=== PATIENT | female | born 1985 | race Caucasian/White ===

== ENCOUNTER 2019-11-29 03:01 | Emergency (ER) | payer SELFPAY ==
[2019-11-29 03:01] VITALS: BP 120/74; PULSE 89; RESP 20; TEMP 36.6; O2SAT 97
--- NOTE | 2019-11-29 03:20 | ED.SKABFB ---
HPI - Skin/Abscess/Foreign Bdy General Chief complaint: Skin/Abscess/Foreign Body Stated complaint: PAIN Source: patient Mode of arrival: ambulatory Limitations: no limitations History of Present Illness HPI narrative: This is a 34-year-old female that presents with some abscess located in the anterior surface of her right knee, started approximately 4 days ago nonfluctuant with currently no drainage it is warm and tender to touch. Patient states that she has had history of MRSA, currently no fever or chills no shortness of breath. complaint: abscess/boil Onset (ago): day(s) Location: [facility] Severity: moderate Severity scale (1-10): 5 Quality: burning and aching Pain Consistency: constant Relieving factors: cold therapy Exacerbating factors: none Context: none Associated symptoms: denies other symptoms Treatments prior to arrival: none Related Data Allergies Allergy/AdvReac Type Severity Reaction Status Date / Time No Known Allergies Allergy Verified 11/29/19 03:16 Review of Systems Review of Systems: All systems reviewed & are unremarkable except as noted in HPI and below PMFSH Past Medical History Medical History Patient denies medical problems Exam Const: General: no acute distress and alert Orientation/consciousness: patient oriented x3 HENMT: Head: normal to inspection Eyes: Conjunctivae: conjunctivae normal Pupils: Equal, round and reactive pupils present EOM: EOMs intact bilaterally Neck: Neck: normal visual inspection, no lymphadenopathy and no meningeal signs Chest: Chest palpation & inspection: normal inspection of the chest Resp: Effort & Inspection: normal respiratory effort Auscultation: clear to auscultation bilaterally Cardio: Rate: regular rate Rhythm: regular rhythm GI: Auscultation: normal bowel sounds : General: Yes no CVA tenderness Skin: Wounds: wounds noted ( Red nonfluctuant area right anterior knee) Neuro: General: patient oriented x3 Speech: normal speech Extrem: General: normal to inspection and no pedal edema Psych: Mental Status: mental status grossly normal Course Course Emergency Course: started patient on a dose of Augmentin prior to discharge and told patient she can use a warm compress along with taking her antibiotics that were sent to her pharmacy. Critical Care Time Critical Care Time Critical Care Time: No Discharge Plan Discharge Clinical Impression: Abscess of skin or subcutaneous tissue Qualifiers: Site of cutaneous abscess: extremity Site of cutaneous abscess of extremity: lower extremity Laterality: right Qualified Code(s): L02.415 - Cutaneous abscess of right lower limb Cellulitis Qualifiers: Site of cellulitis: extremity Site of cellulitis of extremity: lower extremity Laterality: right Qualified Code(s): L03.115 - Cellulitis of right lower limb Patient Disposition: Home, Self-Care Condition: Stable Instructions: Antibiotic Form, Cellulitis (ED), Abscess (ED) Additional Instructions: Take medicine as prescribed and follow-up with primary care physician If symptoms persist or worsen. Warm compress to affected area, can use Motrin as needed for pain and inflammation. Prescriptions: New amoxicillin-pot clavulanate [Augmentin] 875-125 mg tablet 1 tablet PO Q12H Qty: 20 RF: 0 Follow-up/Referrals: Carrie,JACINTO Russell [Primary Care Provider] - Time of Disposition: 03:26
[2019-11-29] MEDS: AMOXICILLIN/CLAVULANATE K 875-125 MG TAB 1 TABLET PO (03:23)
== END 2019-11-29 03:29 | disposition home or self-care (01) ==
PROVIDERS: Emergency Provider Emergency Medicine; PCP Physician Assistant
DX: L02.415 Cutaneous abscess of right lower limb (principal)
CPT/HCPCS: 99283; A9270

== ENCOUNTER 2020-04-13 12:09 | Emergency (ER) | payer OTHER, SELFPAY ==
--- NOTE | ~2020-04-13 | XR_ITS ---
EXAMINATION: XR chest 1V portable DATE: 04/13/2020 13:26 INDICATION: Cough, shortness of breath, headache and fever TECHNIQUE: frontal view of the chest was obtained. COMPARISON: None FINDINGS: The lungs are clear with no focal airspace opacities, pulmonary edema, pleural effusion or pneumothor ax. The cardiomediastinal silhouette is normal. Visualized bones and soft tissues are unremarkable. IMPRESSION: 1. Normal chest radiograph. Reviewed, dictated and finalized at location B. IMPRESSION: 1. Normal chest radiograph.
--- NOTE | 2020-04-13 12:22 | ED.GENADULT ---
HPI - General Adult General Chief complaint: Nausea/Vomiting/Diarrhea Stated complaint: diarrhea headache fever for last 10 days Source: patient Mode of arrival: ambulatory Limitations: no limitations History of Present Illness HPI narrative: Fior is a 34F with a PMH of tobacco abuse, MJ use that presented to the ER with multiple symptoms. 10 days ago she started having some abdominal pain and non-bloody diarrhea. She has had up to 5 episodes per day. She also reports several days of headache, body aches, chills, cold sweats, and fever 99-102. In the last few days she has started to have a dry cough. No known COVID contacts but she does work as a [employer]. Related Data Home Medications Medication Instructions Recorded Confirmed No Home Medications 04/13/20 04/13/20 Allergies Allergy/AdvReac Type Severity Reaction Status Date / Time levofloxacin [From Levaquin] Allergy Unknown Verified 04/13/20 12:45 Review of Systems Constitutional: Constitutional: Reports chills, Reports fatigue and Reports fever(s) Eyes: Eyes: Reports no additional eye complaints ENT: Reports nasal congestion and Reports sore throat Cardiovascular: Cardiovascular: Reports no additional cardiovascular complaints Respiratory: Respiratory: Reports as per HPI Gastrointestinal: Gastrointestinal: Reports as per HPI Genitourinary: Genitourinary: Reports no additional female genitourinary complaints Musculoskeletal: Musculoskeletal: Reports myalgias and Reports muscle cramps Integumentary/Breasts: Skin/Breast: Reports system reviewed and no additional complaints, except as docu Neurologic: Reports as per HPI and Reports headache(s) Psychiatric: Psychiatric: Reports no additional psychiatric complaints Endocrine: Endocrine: Reports no additional endocrine complaints Hematologic/Lymphatic: Hematologic/Lymphatic: Reports no additional hematologic/lymphatic complaints Allergic/Immunologic: Allergic/Immunologic: Reports no additional allergic/immunologic complaints [facility] Past Medical History Medical History (Updated 04/13/20 @ 15:00 by Rg Price DO) Patient denies medical problems Social History Social History Gender identity (if verbalized by the patient): Female Exam Const: General: no acute distress and alert; No confusion Orientation/consciousness: patient oriented x3 Limitations: No altered mental status HENMT: Head: normal to inspection Other: slightly dry mucous membranes. Erythematous nasal turbinates. Eyes: Conjunctivae: conjunctivae normal Pupils: Equal, round and reactive pupils present Neck: Neck: normal visual inspection Chest: Chest palpation & inspection: normal inspection of the chest Resp: Effort & Inspection: normal respiratory effort, not labored and no use of accessory muscles Auscultation: clear to auscultation bilaterally and no wheezes Other: dry cough present on exam Cardio: Rate: regular rate Rhythm: regular rhythm GI: Inspection: non-distended GI Palp: Yes Soft to palpation and No Tenderness to palpation present (GI) : General: Yes no CVA tenderness Back/Spine/Pelvis: Back: no CVA tenderness Skin: General skin exam: normal color Rashes: no rashes Neuro: General: patient oriented x3 and moves all extremities Extrem: General: normal to inspection Psych: Mental Status: mental status grossly normal Attitude: cooperative Course Course Emergency Course: Fior was evaluated. Ordered UA, C. diff, CXR, COVID and labs as below. She was given 1,000ml NS and ibuprofen for body aches. CBC showed showed microcytic anemia, chemistries were unremarkable, and UA was unremarkable. She was not able to give a stool sample for her C. Diff (has not ate anything lately and she only gets diarrhea with eating). COVID is pending. She was discharged to isolate for a couple days for suspected COVID and to return a stool sample for the lab. She w
[2020-04-13 12:31] VITALS: BP 139/81; PULSE 98; RESP 20; TEMP 37; O2SAT 100
[2020-04-13] MEDS: IBUPROFEN 400 MG TABLET PO (13:18)
[2020-04-13] MEDS: SODIUM CHLORIDE 0.9% IV 1,000 ML 999 ML IV CONT (13:19)
[2020-04-13 13:41] LABS: Basophils Absolute Auto 0.04 K/mm3 (0.00-0.10); Basophils Percent Auto 0.6 % (0.0-1.0); Eosinophils Absolute Auto 0.27 K/mm3 (0.02-0.50); Eosinophils Percent Auto 4.1 % (1.0-6.0); Hematocrit 33.1 % (35.0-49.0); Hemoglobin 10.8 g/dL (12.0-15.0); Immature Granulocyte Absolute 0.01 K/mm3 (0.00-0.00); Immature Granulocyte Percent A 0.2 % (0.0-0.0); Lymphocytes Absolute Auto 1.82 K/mm3 (1.10-4.50); Lymphocytes Percent Auto 27.4 % (18.0-42.0); Mean Corpuscular HGB Conc 32.6 g/dL (32.0-36.0); Mean Corpuscular Hemoglobin 27.8 pg (27.0-31.0); Mean Corpuscular Volume 85.1 fL (78.0-102.0); Mean Platelet Volume 11.5 fl (9.2-11.8); Monocytes Absolute Auto 0.48 K/mm3 (0.10-0.90); Monocytes Percent Auto 7.2 % (2.0-11.0); Neutrophils Percent Auto 60.5 % (50.0-70.0); Platelet Count Result 197 K/mm3 (150-420); Red Blood Count 3.89 M/mm3 (4.20-5.40); Red Cell Distribution Width 13.6 % (11.6-14.4); White Blood Count 6.7 K/mm3 (4.8-10.8)
[2020-04-13 13:44] LABS: Add Urine Microscopic? NO; Appearance Urine Clear (Clear); Bilirubin Urine Negative (Negative); Blood Urine Negative (Negative); Color Urine Yellow (Yellow); Glucose Urine UA Negative (Negative); Ketones Urine Negative (Negative); Leukocyte Esterase Ur Negative (Negative); Nitrate Urine Negative (Negative); Protein Urine Negative (Negative); Urobilinogen Urine 0.2 mg/dL (0.2-1.0); pH Urine 7.5 (5.0-8.0)
[2020-04-13 13:56] LABS: Alanine Aminotransferase 19 U/L (14-59); Albumin Level 3.6 g/dL (3.4-5.0); Alkaline Phosphatase 50 U/L (46-116); Anion Gap 10 mmol/L (8-16); Aspartate Amino Transferase 14 U/L (15-37); Bilirubin,Total 0.4 mg/dL (0.00-1.00); Blood Urea Nitrogen 12 mg/dL (7-18); Calcium 8.4 mg/dL (8.5-10.1); Carbon Dioxide 25 mmol/L (21-32); Chloride 108 mmol/L (98-108); Estimated CRCL calculation 68 ml/min; Estimated Glomerular Filt Rate > 60; Glucose 84 mg/dL (70-99); Lipase 85 U/L (73-393); Osmolality Calculated 294 mOsm/kg (285-295); Potassium 3.8 mmol/L (3.5-5.1); Sodium 143 mmol/L (136-145); Total Protein 6.5 g/dL (6.4-8.2)
[2020-04-13 14:03] LABS: Influenza Control Valid (Valid)
[2020-04-13 15:18] VITALS: BP 117/69; PULSE 80; RESP 20; O2SAT 99
[2020-04-14 13:52] LABS: SARS-CoV-2 RNA PCR Negative
== END 2020-04-13 15:22 | disposition home or self-care (01) ==
PROVIDERS: Emergency Provider Family Medicine
DX: B34.9 Viral infection, unspecified (principal); D64.9 Anemia, unspecified; Z20.828 Contact with and (suspected) exposure to other viral communicable diseases
CPT/HCPCS: 36415; 71045; 80053; 81003; 83690; 85025; 87635; 87804; 96360; 99283; A9270; C9803; J7030; U0003

== ENCOUNTER 2020-06-14 17:04 | Emergency (ER) | payer OTHER, SELFPAY ==
--- NOTE | ~2020-06-14 | XR_ITS ---
EXAMINATION: XR shoulder RT min 2V EXAM DATE: 06/14/2020 18:34 INDICATION: Right anterior shoulder and clavicle pain s/p lifting injury. TECHNIQUE: The following right shoulder projections obtained: frontal projection with internal rotati on, frontal projection with external rotation, Grashey, and scapular Y view (4+ views). There is no prior study for comparison. FINDINGS: No evidence of right shoulder rotator cuff calcific tendinosis. Unremarkable right kyle ohumeral and acromioclavicular joints. There are no acute fractures or dislocations identified. Ther e is no subcutaneous gas. The soft tissue is unremarkable. There are no radiopaque foreign bodies. IMPRESSION: 1. Unremarkable right shoulder exam. Reviewed, dictated and finalized at location A. RIGGER
[2020-06-14 17:18] VITALS: BP 124/86; PULSE 82; RESP 20; TEMP 36.4; O2SAT 100
[2020-06-14] MEDS: KETOROLAC (*BKC) 60 MG/2 ML VIAL IM (17:56)
--- NOTE | 2020-06-14 18:48 | ED.UPPEXIN ---
HPI - Extremity Injury (Upper) General Source: patient Limitations: no limitations History of Present Illness HPI narrative: Patient comes in after she was moving a couch and it slipped and fell on her right shoulder. Pain in right shoulder has been moderately severe, ongoing and a sharp pain, which appears to be located in the acromioclavicular joint. Related Data Allergies Allergy/AdvReac Type Severity Reaction Status Date / Time levofloxacin [From Levaquin] Allergy Unknown Verified 06/14/20 17:23 Review of Systems Constitutional: Constitutional: Reports no additional constitutional complaints Eyes: Eyes: Reports no additional eye complaints ENT: Reports system reviewed and no additional complaints, except as documented Cardiovascular: Cardiovascular: Reports no additional cardiovascular complaints Respiratory: Respiratory: Reports no additional respiratory complaints Gastrointestinal: Gastrointestinal: Reports no additional gastrointestinal complaints Genitourinary: Genitourinary: Reports no additional female genitourinary complaints Musculoskeletal: Musculoskeletal: Reports no additional musculoskeletal complaints Integumentary/Breasts: Skin/Breast: Reports system reviewed and no additional complaints, except as docu Neurologic: Reports system reviewed and no additional complaints, except as documented Psychiatric: Psychiatric: Reports no additional psychiatric complaints Endocrine: Endocrine: Reports no additional endocrine complaints Hematologic/Lymphatic: Hematologic/Lymphatic: Reports no additional hematologic/lymphatic complaints Allergic/Immunologic: Allergic/Immunologic: Reports no additional allergic/immunologic complaints PMFSH Past Medical History Medical History (Updated 06/14/20 @ 22:37 by Reagan Mcfadden MD) No significant medical problems Patient denies medical problems Surgical History Surgical History (Updated 06/14/20 @ 22:38 by Reagan Mcfadden MD) No significant past surgical history Social History Social History (Updated 06/14/20 @ 22:38 by Reagan Mcfadden MD) Smoking status: Current every day smoker Gender identity (if verbalized by the patient): Female Exam Const: General: no acute distress Nutritional Appearance: well nourished Orientation/consciousness: patient oriented x3 HENMT: Head: normal to inspection Ears: external ears normal Face and sinus: normal facial exam Eyes: Conjunctivae: conjunctivae normal Neck: Neck: no lymphadenopathy Chest: Chest palpation & inspection: normal inspection of the chest Resp: Effort & Inspection: normal respiratory effort Auscultation: clear to auscultation bilaterally Cardio: Rate: regular rate Rhythm: regular rhythm GI: GI Palp: Yes Soft to palpation Skin: General skin exam: normal color Neuro: General: patient oriented x3 and moves all extremities Speech: normal speech Extrem: General: normal to inspection Other: Right shoulder is tender at Right AC joint Psych: Appearance: grossly normal Mental Status: mental status grossly normal Thought content: Yes Normal thought content present Course Course Emergency Course: She was given ketorolac 60mg IM, and we did plain films of her shoulder which were unremarkable Vital Signs Vital signs: Vital Signs Temperature 36.4 C 06/14/20 17:18 Pulse Rate 82 06/14/20 17:18 Respiratory Rate 20 06/14/20 17:18 Blood Pressure 124/86 06/14/20 17:18 Pulse Oximetry 100 06/14/20 17:18 Temperature 36.4 C 06/14/20 17:18 Pulse Rate 80 06/14/20 19:10 Respiratory Rate 20 06/14/20 19:10 Blood Pressure 124/86 06/14/20 17:18 Pulse Oximetry 100 06/14/20 19:10 Discharge Plan Discharge Clinical Impression: shoulder Patient Disposition: Home, Self-Care Condition: Stable Instructions: Antibiotic Form Additional Instructions: Follow up with family doctor in a few days if not feeling better. Use sling for the next week.
[2020-06-14 19:10] VITALS: PULSE 80; RESP 20; O2SAT 100
== END 2020-06-14 19:12 | disposition home or self-care (01) ==
PROVIDERS: Emergency Provider Emergency Medicine
DX: S43.004A Unspecified dislocation of right shoulder joint, initial encounter (principal); W22.8XXA Striking against or struck by other objects, initial encounter
CPT/HCPCS: 73030; 96372; 99283; A4565; J1885

== ENCOUNTER 2020-07-27 15:34 | Emergency (ER) | payer OTHER, SELFPAY ==
--- NOTE | ~2020-07-27 | XR_ITS ---
XR chest 1V portable DATE: 07/27/2020 16:07 INDICATION: Midsternal chest pain, shortness of breath. Covid-positive on 07/04/2020 TECHNIQUE: Portable AP chest views on 07/27/2020 at 1612 and 1613 hours COMPARISON: 04/13/2020 portable AP chest FINDINGS: Normal heart size. No hilar or mediastinal enlargement. No pulmonary infiltrate or consolid ation, pleural effusion or pulmonary vascular congestion or pneumothorax. IMPRESSION: No active cardiopulmonary disease Reviewed, dictated and finalized at location A. F ENGINEER
--- NOTE | ~2020-07-27 | CT_ITS ---
EXAMINATION: CTA chest PE protocol DATE: 07/27/2020 17:18 INDICATION: Shortness of breath. Midsternal chest pain. TECHNIQUE: Computed tomography angiography (CTA) of the chest was performed with 100 mL Omnipaque-350 intravenous contrast timed to evaluate the pulmonary arteries. Coronal maximum intensity projection 3D-reconstructions were created by the technologist. Automated exposure control and iterative reconst ruction technique were employed. The dose-length product was 285.39 mGy-cm. COMPARISON: None. FINDINGS: There is mild emphysema. There are mild patchy groundglass opacities in the upper lobes and right middle lobe. There is a 6 mm nodule right major fissure, likely benign. No pleural effusion. T he heart size is normal. No pericardial effusion. There is no pulmonary embolus. The bones are unrema rkable. IMPRESSION: 1. No pulmonary embolus. 2. Mild patchy groundglass opacities in the upper lobes and right middle lobe, consistent with pneumo sabi, especially atypical pneumonia such as COVID-19 pneumonia. 3. Mild emphysema. Reviewed, dictated and finalized at location A. AL CAR DELIVERER IMPRESSION: 1. No pulmonary embolus. 2. Mild patchy groundglass opacities in the upper lobes and right middle lobe, consistent with pneumonia, especially atypical pneumonia such as COVID-19 pneum onia. 3. Mild emphysema.
--- NOTE | 2020-07-27 15:38 | ECG_ITS ---
Measurements Intervals [place] Rate: 137 P: 72 IL: 128 QRS: 71 QRSD: 94 T: 35 QT: 330 QTc: 499 Interpretive Statements SINUS TACHYCARDIA INCOMPLETE RIGHT BUNDLE BRANCH BLOCK DELAYED PRECORDIAL R/S TRANSITION NONSPECIFIC ST & T-WAVE ABNORMALITY- INFERIOR LEADS BASELINE ARTIFACT- I, II, III, AVR, AVL, AVF, V1-V6 ABNORMAL ECG Electronically Signed On 07-27-2020 18:23:18 JOINT SEALER by John Ledesma D.O.
[2020-07-27 15:50] VITALS: BP 138/84; PULSE 117; RESP 40; TEMP 36.9; O2SAT 100
[2020-07-27 15:56] VITALS: PULSE 116
[2020-07-27 16:06] LABS: Basophils Absolute Auto 0.03 K/mm3 (0.00-0.10); Basophils Percent Auto 0.4 % (0.0-1.0); Eosinophils Absolute Auto 0.08 K/mm3 (0.02-0.50); Eosinophils Percent Auto 1.2 % (1.0-6.0); Hematocrit 37.4 % (35.0-49.0); Hemoglobin 12.4 g/dL (12.0-15.0); Immature Granulocyte Absolute 0.01 K/mm3 (0.00-0.00); Immature Granulocyte Percent A 0.1 % (0.0-0.0); Mean Corpuscular HGB Conc 33.2 g/dL (32.0-36.0); Mean Corpuscular Hemoglobin 27.9 pg (27.0-31.0); Mean Corpuscular Volume 84.2 fL (78.0-102.0); Mean Platelet Volume 11.4 fl (9.2-11.8); Monocytes Absolute Auto 0.83 K/mm3 (0.10-0.90); Monocytes Percent Auto 12.2 % (2.0-11.0); Neutrophils Absolute Auto 3.7 K/mm3 (1.7-7.2); Neutrophils Percent Auto 55.1 % (50.0-70.0); Platelet Count Result 197 K/mm3 (150-420); Red Blood Count 4.44 M/mm3 (4.20-5.40); Red Cell Distribution Width 14.8 % (11.6-14.4); White Blood Count 6.8 K/mm3 (4.8-10.8)
[2020-07-27] MEDS: LORazepam INJ (*CRX) 2 MG/ML VIAL 0.5 MG IM (16:06)
--- NOTE | 2020-07-27 16:12 | ED.GENADULT ---
HPI - General Adult General Chief complaint: Shortness of Breath/Dyspnea Stated complaint: trouble breathing, chest pain,dizzy Time Seen by Provider: 07/27/20 15:38 Source: patient Mode of arrival: ambulatory History of Present Illness HPI narrative: Fior is a 34F with a PMH of tobacco use and COVID on 07/04 that presented to the ED with dyspnea, CP and anxiety. It started yesterday while watching a movie. She suddenly had an intense cough with SOB that went away just before bed. However, it cam back on her way to work when she had CP, dyspnea and anxiety. She was given a tab of 0.25mg of Xanex that did not help. Related Data Allergies Allergy/AdvReac Type Severity Reaction Status Date / Time ceftriaxone [From Rocephin] Allergy Gastrointestinal Verified 07/27/20 17:32 Upset levofloxacin [From Levaquin] Allergy Unknown Verified 07/27/20 17:32 Review of Systems Constitutional: Constitutional: Reports no additional constitutional complaints, Denies chills and Denies fever(s) Eyes: Eyes: Reports no additional eye complaints ENT: Reports system reviewed and no additional complaints, except as documented Cardiovascular: Cardiovascular: Reports as per HPI Respiratory: Respiratory: Reports as per HPI Gastrointestinal: Comments: 2 episodes of vomiting yesterday Genitourinary: Genitourinary: Reports no additional female genitourinary complaints Musculoskeletal: Musculoskeletal: Reports no additional musculoskeletal complaints Integumentary/Breasts: Skin/Breast: Reports system reviewed and no additional complaints, except as docu Neurologic: Reports system reviewed and no additional complaints, except as documented Psychiatric: Psychiatric: Reports no additional psychiatric complaints Endocrine: Endocrine: Reports no additional endocrine complaints Hematologic/Lymphatic: Hematologic/Lymphatic: Reports no additional hematologic/lymphatic complaints Allergic/Immunologic: Allergic/Immunologic: Reports no additional allergic/immunologic complaints [facility] Past Medical History Medical History No significant medical problems Patient denies medical problems Surgical History Surgical History No significant past surgical history Social History Social History Smoking status: Current every day smoker Gender identity (if verbalized by the patient): Female Exam Const: General: alert Orientation/consciousness: patient oriented x3 Limitations: No altered mental status Other: In moderate distress sitting on the bed leaning foreward HENMT: Head: normal to inspection Other: atrauamtic Eyes: Pupils: Equal, round and reactive pupils present Chest: Chest palpation & inspection: normal inspection of the chest Resp: Effort & Inspection: no retractions Other: Tachypnea present but no wheezing, stridor or coughing present on exam. Cardio: Rate: regular rate Rhythm: regular rhythm GI: Inspection: non-distended GI Palp: Yes Soft to palpation, No Tenderness to palpation present (GI) and No Guarding due to palpation present (GI) Skin: General skin exam: normal color Rashes: no rashes Neuro: General: patient oriented x3 and moves all extremities Extrem: General: normal to inspection Psych: Mental Status: mental status grossly normal Course Course Emergency Course: Fior was evaluated. Ordered CXR, EKG and labs. She was given 0.5mg of Ativan IM for presumed anxiety. EKG showed sinus tachycardia without ectopy but interpretation was very difficult d/t baseline artifact. Her HR came down about 20bpm with the ativan and she felt a little better so she was given another 0.5mg IV Labs showed an elevated D-dimer so a CTA was ordered given CP, tachypnea, tachycardia, elevated D-dimer and recent COVID infection. Potassium was also low so she was given 40mEq
[2020-07-27 16:19] LABS: BNP < 5.0 pg/mL (0-100)
[2020-07-27 16:20] LABS: Prothrombin Time 10.9 Seconds (9.50-12.10)
[2020-07-27 16:22] LABS: Alanine Aminotransferase 22 U/L (14-59); Albumin Level 4.1 g/dL (3.4-5.0); Alkaline Phosphatase 48 U/L (46-116); Anion Gap 14 mmol/L (8-16); Aspartate Amino Transferase 13 U/L (15-37); Bilirubin,Total 0.3 mg/dL (0.00-1.00); Blood Urea Nitrogen 10 mg/dL (7-18); Carbon Dioxide 21 mmol/L (21-32); Chloride 105 mmol/L (98-108); Estimated CRCL calculation 64 ml/min; Estimated Glomerular Filt Rate > 60; Glucose 99 mg/dL (70-99); Osmolality Calculated 289 mOsm/kg (285-295); Potassium 2.9 mmol/L (3.5-5.1); Sodium 140 mmol/L (136-145); Total Protein 7.1 g/dL (6.4-8.2); Troponin I < 4.0 ng/L (0.00-60.4)
[2020-07-27 16:38] LABS: D Dimer 0.62 mg/L (0.19-0.50)
[2020-07-27] MEDS: LORazepam INJ (*CRX) 2 MG/ML VIAL 0.5 MG IV PUSH (16:42)
[2020-07-27 16:53] LABS: Pregnancy On Board Control Positive; Urine Pregnancy Test Negative
[2020-07-27] MEDS: POTASSIUM CHLORIDE 20 MEQ TABLET 40 MEQ PO (17:01)
[2020-07-27] MEDS: SODIUM CHLORIDE 0.9% IV 1,000 ML 500 ML IV CONT (17:02)
[2020-07-27] MEDS: KCL 20 MEQ/SW 100 ML 100 ML 50 MEQ (17:03)
[2020-07-27 17:18] LABS: Amphetamine Screen Urine Negative (Negative); Barbiturate Screen Urine Negative (Negative); Benzodiazepines Screen Urine Negative (Negative); Cannabinoid Screen Urine Positive (Negative); Cocaine Screen Urine Negative (Negative); Methadone Screen Urine Negative (Negative); Opiate Screen Urine Negative (Negative); Phencyclidine Screen Urine Negative (Negative)
[2020-07-27 19:26] VITALS: BP 100/72; PULSE 101; RESP 20; O2SAT 98
== END 2020-07-27 19:32 | disposition home or self-care (01) ==
PROVIDERS: Emergency Provider Family Medicine
DX: U07.1 COVID-19 (principal); J12.82 Pneumonia due to coronavirus disease 2019; E87.6 Hypokalemia
CPT/HCPCS: 36415; 71045; 71275; 80053; 80307; 81025; 83880; 84484; 85025; 85380; 85610; 93005; 96365; 96366; 96372; 96375; 99283; 99284; A9270; J2060; J3480; J7030; Q9967

== ENCOUNTER 2020-08-27 03:15 | Emergency (ER) | payer OTHER, SELFPAY ==
[2020-08-27 15:48] VITALS: BP 116/81; PULSE 88; RESP 18; TEMP 36.6; O2SAT 99
--- NOTE | 2020-08-27 15:50 | ED.WOUNDLAC ---
HPI - Wound/Laceration General Chief Complaint: Wound/Laceration Stated Complaint: Cut left thumb Time Seen by Provider: 08/27/20 15:50 Source: patient Mode of arrival: ambulatory Limitations: no limitations History of Present Illness HPI narrative: 34-year-old woman comes in today complaining of lacerations on her left dorsal thumb. Patient states that she was using a knife to open a plastic package when it slipped and stabbed her in the hand. She denies any numbness or tingling. She states that it is painful to bend her thumb but has no problem moving it. She does not recall her last tetanus shot. Onset (ago): hour(s) (1) Extremity Location: Left: hand Place: home Context: accidental Associated symptoms: pain Treatments prior to arrival: bandage Related Data Allergies Allergy/AdvReac Type Severity Reaction Status Date / Time ceftriaxone [From Rocephin] Allergy Gastrointestinal Verified 07/27/20 17:32 Upset levofloxacin [From Levaquin] Allergy Unknown Verified 07/27/20 17:32 Review of Systems Constitutional: Constitutional: Denies chills and Denies fever(s) Cardiovascular: Cardiovascular: Denies chest pain and Denies radiating jaw, neck or arm pain Gastrointestinal: Gastrointestinal: Denies nausea and Denies vomiting Integumentary/Breasts: Skin/Breast: Denies pruritus, Denies erythema and Denies rash Neurologic: Denies vertigo, Denies dizziness, Denies syncope and Denies numbness Hematologic/Lymphatic: Hematologic/Lymphatic: Denies easy bleeding and Denies easy bruising PMFSH Past Medical History Medical History No significant medical problems Patient denies medical problems Surgical History Surgical History No significant past surgical history Social History Social History Smoking status: Current every day smoker Gender identity (if verbalized by the patient): Female Exam Const: General: healthy appearing and alert Orientation/consciousness: patient oriented x3 Limitations: no limitations Other: Mild acute distress. Resp: Effort & Inspection: normal respiratory effort and not labored Auscultation: clear to auscultation bilaterally, no rales, no rhonchi and no wheezes Cardio: Rate: regular rate Rhythm: regular rhythm Heart sounds: no murmurs Skin: General skin exam: normal color, no jaundice and no pallor Rashes: no rashes Other: 1.5 cm linearlaceration of dorsal aspect left thumb between the IP and the MCP. Just proximal to a laceration there is a 2 mm laceration that is well approximated and not bleeding. Distal neurovascular exam is intact. Neuro: General: patient oriented x3, moves all extremities, no focal motor deficits and CN's II-XI intact bilaterally Speech: normal speech Gait exam (Neuro): Normal gait present Other: Left thumb extensor and flexor tendons are intact to challenge. Extrem: General: normal to inspection and no clubbing, cyanosis or edema Psych: Appearance: grossly normal and well kempt Mental Status: mental status grossly normal Affect: Anxious affect present Attitude: cooperative Thought content: Yes Normal thought content present Procedures Laceration Laceration 1: Date: 08/27/20 Time: 16:30 Site: hand Side (If applicable): left Size (cm): 1.5 Description: linear Depth: simple, single layer Local Anesthetic: lidocaine 1% Amount of anesthesia used (mL): 3 Pre-repair: wound explored and irrigated extensively ====== Skin Level ====== Skin layer closed with: nylon Size (cm): 4-0 Number of sutures: 3 Technique: simple, interrupted ====== Subcutaneous Layer ====== ====== Muscle Layer ====== ====== Tendon Layer ====== Discharge Plan Discharge Clinical Impression: Lace
[2020-08-27] MEDS: TETANUS,DIPHTHERIA,AC PERTUSSIS ADULT 0.5 ML (ADACEL) IM (16:34)
== END 2020-08-27 17:00 | disposition home or self-care (01) ==
PROVIDERS: Emergency Provider Emergency Medicine
DX: S61.012A Laceration without foreign body of left thumb without damage to nail, initial encounter (principal); W26.0XXA Contact with knife, initial encounter
CPT/HCPCS: 12001; 90471; 90715; 99283